=== PATIENT | male | born 1990 | race Caucasian/White ===

== ENCOUNTER 2017-08-06 21:36 | Emergency (ER) | payer OTHER | END 2017-08-06 23:36 | disposition left against medical advice (07) | LOC: M ED 21:36 | DX: Z53.21 Procedure and treatment not carried out due to patient leaving prior to being seen by health care provider (principal) ==

== ENCOUNTER 2019-09-01 15:10 | Emergency (ER) | payer OTHER, SELFPAY ==
[~2019-09-01] VITALS: Ht 185.4 cm; Wt 157.4 kg
[2019-09-01 15:39] VITALS: BP 178/104
[2019-09-01] MEDS ORDERED: CLIN75CA PO (15:54)
[2019-09-01] MEDS ORDERED: CEPH25SS PO (15:58)
[2019-09-01] MEDS ORDERED: CLIN150C14 PO (15:58)
== END 2019-09-01 19:08 | disposition left against medical advice (07) ==
LOC: M ED 15:10
DX: L03.115 Cellulitis of right lower limb (principal); Z86.14 Personal history of Methicillin resistant Staphylococcus aureus infection; K21.9 Gastro-esophageal reflux disease without esophagitis; F17.200 Nicotine dependence, unspecified, uncomplicated; F11.10 Opioid abuse, uncomplicated; E66.9 Obesity, unspecified; Z53.21 Procedure and treatment not carried out due to patient leaving prior to being seen by health care provider

== ENCOUNTER 2019-09-21 10:39 | Emergency (ER) | payer OTHER, SELFPAY ==
[~2019-09-21] VITALS: Ht 185.4 cm; Wt 136.4 kg
[~2019-09-21 10:39] MED LIST: CEPH25SS PO; CLIN150C14 PO; CLIN75CA PO
[2019-09-21] MEDS ORDERED: BACT800T5 PO ×2 (10:45→15:27)
[2019-09-21 12:50] LABS: BASO # 0.1 10^3/uL (0.0-0.2); BASO % 0.8 % (0.0-1.0); EOS # 0.1 10^3/uL (0.0-0.5); HEMATOCRIT 46.3 % (42.0-52.0); HEMOGLOBIN 14.9 g/dl (13.5-17.5); LYMPH # 2.2 10^3/uL (1.5-5.0); LYMPH % 20.5 % (24.0-44.0); MEAN CORPUSCULAR HEMOGLOBIN 29.9 pg (27.0-33.0); MEAN CORPUSCULAR HGB CONC 32.2 g/dl (32.0-36.5); MEAN CORPUSCULAR VOLUME 92.8 fl (80.0-96.0); MONO # 0.6 10^3/uL (0.0-0.8); MONO % 5.9 % (0.0-5.0); NEUTROPHILS # 7.7 10^3/uL (1.5-8.5); NEUTROPHILS % 71.5 % (36.0-66.0); PLATELET COUNT, AUTOMATED 411 10^3/uL (150-450); RED BLOOD COUNT 4.99 10^6/uL (4.30-6.10); WHITE BLOOD COUNT 10.7 10^3/uL (4.0-10.0)
[2019-09-21 13:14] LABS: ERYTHROCYTE SEDIMENTATION RATE 22 mm/hr (0-15)
--- NOTE | 2019-09-21 14:29 | REP ---
Clinical: Open wounds. Evaluate for osteomyelitis. Technique: AP and lateral views of the right tibia / fibula. Findings: Open wounds along the anteromedial aspect of the mid calf noted. No foreign body. The osseous structures demonstrate age-related changes without periosteal reaction to suggest osteomyelitis. No fracture or dislocation. Impression: Open wound. No evidence for underlying osseous involvement. Electronically Signed by Pranav Griffin MD 09/21/2019 02:21 P
[2019-09-21 14:45] VITALS: BP 155/94
[2019-09-21] MEDS ORDERED: EQL1CAP9 PO (15:36)
== END 2019-09-21 15:43 | disposition home or self-care (01) ==
LOC: M ED 10:39
DX: S81.801A Unspecified open wound, right lower leg, initial encounter (principal); L03.115 Cellulitis of right lower limb; Z86.14 Personal history of Methicillin resistant Staphylococcus aureus infection; F17.200 Nicotine dependence, unspecified, uncomplicated; F19.10 Other psychoactive substance abuse, uncomplicated; Z79.899 Other long term (current) drug therapy

== ENCOUNTER 2020-02-17 11:35 | Inpatient (IN) | payer OTHER, SELFPAY ==
[~2020-02-17] VITALS: Ht 185.4 cm; Wt 158.6 kg
[~2020-02-17 11:35] MED LIST changes: +BACT800T5 PO; +EQL1CAP9 PO
[2020-02-17 12:38] LABS: HEMOGLOBIN 13.6 g/dl (13.5-17.5); MEAN CORPUSCULAR HEMOGLOBIN 30.4 pg (27.0-33.0); MEAN CORPUSCULAR HGB CONC 33.2 g/dl (32.0-36.5); MEAN CORPUSCULAR VOLUME 91.7 fl (80.0-96.0); PLATELET COUNT, AUTOMATED 289 10^3/uL (150-450); RED BLOOD COUNT 4.47 10^6/uL (4.30-6.10); WHITE BLOOD COUNT 7.9 10^3/uL (4.0-10.0)
[2020-02-17 13:19] LABS: ACETAMINOPHEN LEVEL < 2.0 UG/ML (10.0-30.0); ALBUMIN 3.9 GM/DL (3.2-5.2); ALT/SGPT 35 U/L (12-78); AMPHETAMINES LEVEL URINE POSITIVE (NEGATIVE); BARBITURATES URINE NEGATIVE (NEGATIVE); BENZODIAZEPINES URINE NEGATIVE (NEGATIVE); BILIRUBIN,DIRECT 0.2 MG/DL (0.0-0.2); BILIRUBIN,TOTAL 0.7 MG/DL (0.2-1.0); BLOOD UREA NITROGEN 16 MG/DL (7-18); CALCIUM LEVEL 9.3 MG/DL (8.5-10.1); CANNABINOIDS URINE NEGATIVE (NEGATIVE); CARBON DIOXIDE LEVEL 31 MEQ/L (21-32); CHLORIDE LEVEL 106 MEQ/L (98-107); COCAINE METABOLITE URINE NEGATIVE (NEGATIVE); CPK CREATINE PHOSPHOKINASE 386 U/L (39-308); CREATININE FOR GFR 0.92 MG/DL (0.70-1.30); ETHYL ALCOHOL (ETHANOL) < 0.003 % (0.000-0.010); GLOMERULAR FILTRATION RATE > 60.0 (>60); GLUCOSE, FASTING 96 MG/DL (70-100); METHADONE URINE NEGATIVE (NEGATIVE); OPIATES URINE NEGATIVE (NEGATIVE); PHENCYCLIDINE URINE NEGATIVE (NEGATIVE); POTASSIUM SERUM 4.2 MEQ/L (3.5-5.1); SALICYLATE LEVEL 2.5 MG/DL (5.0-30.0); SODIUM LEVEL 141 MEQ/L (136-145); THYROID STIMULATING HORMONE 0.648 uIU/ML (0.358-3.740)
[2020-02-17] MEDS ORDERED: LORazepam 2 MG TAB PO STA (15:55)
[2020-02-17] MEDS ORDERED: OLANZapine ORAL DISINTEGRATING TAB 5MG PO PRN (17:15)
[2020-02-17] MEDS ORDERED: MAALOX 30 ML SUSP *UDC PO PRN (17:15)
[2020-02-17] MEDS ORDERED: MOM 30ML SUSPENSION UDC PO PRN (17:15)
[2020-02-17] MEDS ORDERED: LORazepam 2 MG TAB PO PRN (17:15)
[2020-02-17] MEDS ORDERED: ACETAMINOPHEN TAB 650MG DOSE (2X325MG) PO PRN (17:15)
[2020-02-17] MEDS: THIAMINE 100 MG TAB PO SCH (19:04)
[2020-02-17 21:32] VITALS: BP 143/94
[2020-02-18 05:00] VITALS: BP 130/90
[2020-02-18 06:02] VITALS: BP 130/90
[2020-02-18] MEDS: NICOTINE 21MG/24HR 1 EA TRANSDERMAL TD SCH (09:00)
[2020-02-18] MEDS: FOLIC ACID 1 MG TAB PO SCH (09:06)
[2020-02-18] MEDS: MULTIVITAMINS/MINERALS THERAP 1 TAB PO SCH (09:06)
[2020-02-18] MEDS: THIAMINE 100 MG TAB PO SCH ×2 (09:06→22:09)
--- NOTE | 2020-02-18 14:49 | HPEPDOC ---
[facility] Medical History & Physical Date of Admission Feb 17, 2020 Date of Service: Feb 18, 2020 History and Physical CHIEF COMPLAINT: Depression HISTORY OF PRESENT ILLNESS: Patient is 29 year old male with PMH PTSD, Depression/anxiety, RLE MRSA skin infection presented to [facility] at [facility] for reported suicidal ideation. He states that he has mental illness history and has been undergoing stressors that caused him to become more depressed and had suicidal thoughts. The only medical problem he reports is the chronic RLE wound. He reports being hospitalized for his leg ni [place] last July and has had I and D follow by antibiotic treatment. He had seen Dr. Hamomnd at the wound clinic once but has not followed up in a long time due to COVID. He does not report any complaints in his leg and states that the wound look the same as it had been for months with no significant change. He denies any pain, SOB, fever, chills, nausea or vomiting. PAST MEDICAL HISTORY: Refer to [facility] PAST SURGICAL HISTORY: Tonsillectomy RLE I and D SOCIAL HISTORY: Smokes 1.5 ppd. denies alcohol use. Reports prescription suboxone abuse but UA was + for amphetamine, he is not sure what drugs he was using FAMILY HISTORY: Mother- DM, HTN, anxiety ALLERGIES: Please see below. REVIEW OF SYSTEMS: 10 point review of system negative except as stated in HPI HOME MEDICATIONS: Please see below. PHYSICAL EXAMINATION: General: No acute distress, Alert Eyes: Normal sclera, EOMI HENT: Atraumatic Cardiovascular: Normal rate, normal rhythm. Pulmonary: Clear to auscultation b/l, no wheezing GI: Soft, nontender, nondistended Skin: 2 circular RLE circular wound with overlying bandage. No swelling or tenderness but pus is noted on surface. Neuro: CN grossly intact. No focal deficits. Strengths equal b/l. Psych: oriented x 3 LABORATORY DATA: See below. MICROBIOLOGY: Please see below. ASSESSMENT AND PLAN: 1. Depression/anxiety - eval and treat per psych. 2. Chronic RLE wound - Reportedly unchanged for months and has had treatment with I and D and antibiotics in [place] in July. - Follows with wound care in [place] with Dr. Hammond but has not been back in a long time. - He is afebrile, no leukocytosis with no systemic symptoms. No significant soft tissue inflammation. - Instructed to cleanse the wound area and apply clean dressing. - Recommend follow up with wound care immediately post discharge or consult surgery for evaluation if patient is still here longer than the next 2 days. - Start on antibiotics should wound worsen or develops any systemic symptoms. Will sign off at this time but please call with any questions or concerns. Vital Signs Vital Signs Date Time Temp Pulse Resp B/P (MAP) Pulse Ox O2 Delivery O2 Flow Rate FiO2 02/18/20 06:02 98.1 98 18 130/90 (103) 99 Room Air Home Medications Unable to Obtain Active Prescriptions or Reported Meds Allergies Coded Allergies: No Known Allergies (Unverified , 08/06/17) A-FIB/CHADSVASC A-FIB History Current/History of A-Fib/PAF?: No JA ARAGON MD Feb 18, 2020 14:49
[2020-02-18 15:39] VITALS: BP 153/80
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
[2020-02-18 22:00] VITALS: BP 172/85
[2020-02-18] MEDS: traZODone 50 MG TAB PO PRN (22:09)
[2020-02-18] MEDS: PRAZOSIN 1 MG CAP PO SCH (22:09)
[2020-02-19 06:23] VITALS: BP 129/80
[2020-02-19] MEDS: MULTIVITAMINS/MINERALS THERAP 1 TAB PO SCH (08:41)
[2020-02-19] MEDS: THIAMINE 100 MG TAB PO SCH ×2 (08:41→21:06)
[2020-02-19] MEDS: SERTRALINE HCL 50 MG TAB PO SCH (08:41)
[2020-02-19] MEDS: FOLIC ACID 1 MG TAB PO SCH (08:41)
[2020-02-19] MEDS: NICOTINE 21MG/24HR 1 EA TRANSDERMAL TD SCH (08:42)
[2020-02-19] MEDS ORDERED: BACTRIM 160MG/800MG DS TAB PO SCH (09:00)
--- NOTE | 2020-02-19 12:37 | IPNPDOC ---
Date Seen The patient was seen on 02/19/20. Progress Note SUBJECTIVE: Called by nursing this morning regarding patient's hand swelling b/l. However, by the time I arrived, patient reported that his hands are back to normal. States that it swells up from time to time and self resolves. His RLE wound is re-assessed, still with superficial pus on surface. No changes from day prior. OBJECTIVE PHYSICAL EXAMINATION: VITAL SIGNS: Please see below. General: No acute distress, Alert Eyes: Normal sclera, EOMI HENT: Atraumatic Cardiovascular: Normal rate, normal rhythm. Pulmonary: Clear to auscultation b/l, no wheezing GI: Soft, nontender, nondistended Skin: 2 circular RLE circular wound with overlying bandage. No swelling or tenderness but pus is noted on surface. Neuro: CN grossly intact. No focal deficits. Strengths equal b/l. Psych: oriented x 3 LABORATORY DATA, IMAGING STUDIES, MICROBIOLOGY: Please see below. ASSESSMENT AND PLAN: 1. Depression/anxiety - eval and treat per psych. 2. Chronic RLE wound - Reportedly unchanged for months and has had treatment with I and D and antibiotics in [place] in July. - Follows with wound care in [place] with Dr. Hammond but has not been back in a long time. - He is afebrile, no leukocytosis with no systemic symptoms. No significant soft tissue inflammation. - Discussed with general surgery, Dr. Hdez. Recommended wet to dry dressing BID and follow up with wound care vs. surgery post discharge. - Since patient is already established with wound care, would recommend patient try to be seen there. If not able, then contact surgery office. - Had been treated with antibiotics already and wound had not changed for months. Will hold of on further antibiotic treatment at this time. Will sign off. please call with any questions or concerns. VS, I&O, 24H, Fishbone Vital Signs/I&O Vital Signs Date Time Temp Pulse Resp B/P (MAP) Pulse Ox O2 Delivery O2 Flow Rate FiO2 02/19/20 06:23 98.0 72 18 129/80 (96) 98 Room Air JA ARAGON MD Feb 19, 2020 12:37
[2020-02-19 16:19] VITALS: BP 125/84
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
[2020-02-19] MEDS: PRAZOSIN 1 MG CAP PO SCH (21:06)
[2020-02-20 05:58] VITALS: BP 132/88
--- NOTE | 2020-02-20 07:51 | MHIPNPDOC ---
[facility] Progress Note Progress Note The patient was seen on 02/20/20. HPI: Albino presents today for a follow-up visit. He states he feels better than when he came in and that he feels sleepier than usual. Albino states the Zoloft has been helping. Albino denies being suicidal or homicidal and reports he wants to go home to see his children. He mentions his has been in a similar facility in the past Objective Appearance: Well nourished. Well groomed. Appears to be stated age. Behavior: Pleasant. Cooperative with good eye contact. Engaged. Affect: Full range. Appropriate to context. Mood: Generally good. Euthymic. Appropriately reactive. Speech: Normal volume. Normal rate. Spontaneous and Fluid. Motor: No gross motor abnormalities. Cognition: Alert, Attentive, and Oriented to person, place, time. Memory: No formal testing. No gross abnormalities of short or detention memory noted during interview. Thought Form: Linear and goal directed. Thought Content: No evidence of suicidal ideation. No thoughts of self harm. No evidence of aggressive or homicidal ideation. No evidence of delusions. Perception: No perceptual abnormalities noted. Judgement: Intact as evidenced by decision making in the recent past. Insight: Good insight into symptoms and treatment options. Assessment F43.24 Adjustment disorder with disturbance of conduct Plan Discharge tomorrow. Continue medications as is. Vital Signs Vital Signs Date Time Temp Pulse Resp B/P (MAP) Pulse Ox O2 Delivery O2 Flow Rate FiO2 02/20/20 05:58 98.0 68 18 132/88 (103) 98 Room Air Current Medications Current Medications Medications (Trade) Dose Ordered Sig/Bety Route PRN Reason Start Time Stop Time Status Last Admin Dose Admin Acetaminophen (Tylenol Tab) 650 mg Q6HP PRN PO HEADACHE or DISCOMFORT 02/17/20 17:15 Al Hydrox/Mg Hydrox/Simethicone (Mylanta) 30 ml Q4HP PRN PO HEARTBURN/INDIGESTION 02/17/20 17:15 Folic Acid (Folic Acid) 1 mg DAILY PO 02/18/20 09:00 02/19/20 08:41 Home Med (Med Rec Complete!) ASDIRECTED XX 02/17/20 15:45 02/17/20 15:42 DC Lorazepam (Ativan) 2 mg ASDIRECTED PRN PO SEE PROTOCOL 02/17/20 17:15 02/19/20 07:26 DC Lorazepam (Ativan) 2 mg STAT STAT PO 02/17/20 15:55 02/17/20 15:56 DC 02/17/20 16:01 Magnesium Hydroxide (Milk Of Magnesia) 30 ml DAILYPRN PRN PO CONSTIPATION 02/17/20 17:15 Multivitamins (Theragram-M) 1 tab DAILY PO 02/18/20 09:00 02/19/20 08:41 Nicotine (Nicoderm Cq 21mg) 1 patch DAILY TD 02/18/20 09:00 02/19/20 08:42 Olanzapine (ZyPREXA ZYDIS) 5 mg Q4HP PRN PO ANXIETY/AGITATION 02/17/20 17:15 02/19/20 08:41 Prazosin HCl (Minipress) 1 mg QHS PO 02/18/20 21:00 02/19/20 21:06 Sertraline HCl (Zoloft) 50 mg DAILY PO 02/19/20 09:00 02/19/20 08:41 Thiamine HCl (Thiamine HCl) 100 mg BID PO 02/17/20 18:00 02/20/20 09:01 02/19/20 21:06 Trazodone HCl (Desyrel) 50 mg QHSP PRN PO INSOMNIA 02/17/20 17:15 02/18/20 22:09 Trimethoprim/ Sulfamethoxazole (Bactrim Ds, Septra Ds 160mg/ 800mg) 1 tab BID PO 02/19/20 09:00 02/19/20 18:59 DC 02/19/20 08:41 Allergies Coded Allergies: No Known Allergies (Unverified , 08/06/17) GHULAM WOODS DO Feb 20, 2020 07:51
[2020-02-20] MEDS: SERTRALINE HCL 50 MG TAB PO SCH (08:12)
[2020-02-20] MEDS: FOLIC ACID 1 MG TAB PO SCH (08:12)
[2020-02-20] MEDS: MULTIVITAMINS/MINERALS THERAP 1 TAB PO SCH (08:12)
[2020-02-20] MEDS: THIAMINE 100 MG TAB PO SCH (08:12)
[2020-02-20] MEDS: NICOTINE 21MG/24HR 1 EA TRANSDERMAL TD SCH (08:12)
[2020-02-20 16:09] VITALS: BP 148/90
[2020-02-20] MEDS: traZODone 50 MG TAB PO PRN (21:33)
[2020-02-20 21:34] VITALS: BP 148/90
[2020-02-20] MEDS: PRAZOSIN 1 MG CAP PO SCH (21:34)
[2020-02-21 06:25] VITALS: BP 140/90
--- NOTE | 2020-02-21 07:42 | MHDSPDOC ---
[facility] Discharge Summary Discharge Summary DATE OF ADMISSION: Feb 17, 2020 at 17:04 DATE OF DISCHARGE: Feb 21, 2020 at 10:19 DISCHARGE DIAGNOSES: F43.24 Adjustment disorder with disturbance of conduct CONSULTANTS INVOLVED:[ None (basic hospitalist screening)] REASON FOR ADMISSION & TREATMENT AND PROGRESS ON THE UNIT : Patient was admitted for reported concerning statements and ideations in the conext of depression and stressors in his realtionship. He was observed after being admitted. He attended treatment without any major problems, he was well behaved and engaged. MEDICATIONS: Albino was started on Zoloft with positive effects. Increased to full effect, where he depression symptoms were not observable and patient denied any non- situational symptoms. DISCHARGE ASSESSMENT[improved] Legal status considerations: The patient at the time of discharge did not meet criteria for involuntary admission/extension due to having a [normal] mental status exam, [fair] insight into the situation, They are engaged in the discharge process, as well as being friendly and amenable in behavioral control and havent been engaging in any observed concerning behavior or ideation recently. They decline voluntary extension/admission at this time and must be discharged in good carlos enrique, as Im unable to make a case for holding the patient against their will. They may have historical risk factors of admissions and other interactions with psychiatry however, those are not modifiable from a clinical perspective. The patient will need to be discharged in good carlos enrique. MENTAL STATUS EXAMINATION ON DISCHARGE: [General: Well dressed with good hygiene Speech: Spontaneous and fluid Thought processes: Linear and logical Thought content: Future orientated Abstract reasoning, and computation: Intact Description of associations: Intact Description of abnormal or psychotic thoughts:Denies any suicidal or homicidal ideation. Denies any auditory or visual hallucinations. Does not appear to be responding to internal stimuli. Does not appear to be endorsing any bizarre or paranoid ideation. Judgment: fair Insight: fair Orientation: Alert and orientated 3 Recent and remote memory: Intact Attention span and concentration: Intact Fund of knowledge: Adequate Mood: "okay" Affect: Euthymic with a full range] PLAN/FOLLOWUP ARRANGEMENTS: Follow up appointments made (PCP and MH in 5 days of D/C date) and safety plan completed. Safety Planning aspects completed prior to discharge [Medication supplies limited to 7 days with 4 refills to prevent accumulation to OD] [RN reviewed crisis hotline information and other aspects to empower patient to access care in interim before next appointment.] The amount of time spent in the coordination of care for this patient was approximately 30 minutes. Vital Signs/I&Os Vital Signs Date Time Temp Pulse Resp B/P (MAP) Pulse Ox O2 Delivery O2 Flow Rate FiO2 02/21/20 06:25 98.9 91 14 140/90 (107) Room Air 02/20/20 05:58 98 Medications Scheduled Nicotine (Nicotine Patch) 21 Mg Patch.td24, 1 PATCH TD DAILY for tobacco for 30 Days, #30 Prazosin HCl (Minipress) 1 Mg Capsule, 1 MG PO QHS for nightmares for 7 Days, #7 Sertraline HCl (Sertraline HCl) 50 Mg Tablet, 50 MG PO DAILY for mood for 7 Days, #7 Allergies Coded Allergies: No Known Allergies (Unverified , 08/06/17) GHULAM WOODS DO Feb 21, 2020 07:42
[2020-02-21] MEDS ORDERED: MINI1CAP PO (07:44)
[2020-02-21] MEDS ORDERED: SERT50TA29 PO (07:44)
[2020-02-21] MEDS ORDERED: NICO21PAT TD (07:44)
[2020-02-21] MEDS: FOLIC ACID 1 MG TAB PO SCH (08:56)
[2020-02-21] MEDS: SERTRALINE HCL 50 MG TAB PO SCH (08:56)
[2020-02-21] MEDS: NICOTINE 21MG/24HR 1 EA TRANSDERMAL TD SCH (08:56)
[2020-02-21] MEDS: MULTIVITAMINS/MINERALS THERAP 1 TAB PO SCH (08:56)
== END 2020-02-21 10:19 | disposition home or self-care (01) | DRG 755 ==
LOC: M ED 11:35 → M ED INP 17:04 → M PSY 17:52
PROVIDERS: ADMIT Psychiatry & Neurology Addiction Medicine; ATTEND Psychiatry & Neurology Addiction Medicine
DX: F43.24 Adjustment disorder with disturbance of conduct (principal); F17.200 Nicotine dependence, unspecified, uncomplicated

== ENCOUNTER 2022-03-03 22:57 | Emergency (ER) | payer MEDICAID, OTHER ==
[~2022-03-03] VITALS: Ht 185.4 cm; Wt 187.3 kg
[~2022-03-03 22:57] MED LIST changes: -CLIN150C14 PO; +CLIN150C17 PO; +MINI1CAP PO; +NICO21PAT TD; +SERT50TA29 PO
[2022-03-03] MEDS ORDERED: NS 1,000 ML IV ONE (23:25)
[2022-03-04] MEDS ORDERED: BENZONATATE 100MG CAPSULE PO ONE (00:20)
[2022-03-04 00:21] LABS: VENOUS BASE EXCESS -1.4 (-2.0-2.0); VENOUS HCO3 25.9 MEQ/L (23.0-27.0); VENOUS O2 SATURATION 82.8 % (60.0-80.0); VENOUS PARTIAL PRESSURE O2 47.4 mmHg (30.0-50.0); VENOUS PH 7.298 UNITS (7.330-7.430); VENOUS TOTAL CO2 27.5 MEQ/L (24.0-28.0)
[2022-03-04] MEDS: COMBIVENT RESPIMAT 100-20MCG INHALER 4GM INH SCH ×2 (00:29→00:31)
[2022-03-04 00:34] LABS: BASO # 0.1 10^3/uL (0.0-0.2); BASO % 0.3 % (0.0-1.0); EOS # 0.1 10^3/uL (0.0-0.5); EOS % 0.7 % (0.0-3.0); HEMATOCRIT 40.4 % (42.0-52.0); HEMOGLOBIN 13.2 g/dl (13.5-17.5); LYMPH # 1.7 10^3/uL (1.5-5.0); LYMPH % 9.4 % (24.0-44.0); MEAN CORPUSCULAR HEMOGLOBIN 30.1 pg (27.0-33.0); MEAN CORPUSCULAR HGB CONC 32.7 g/dl (32.0-36.5); MONO # 1.2 10^3/uL (0.0-0.8); MONO % 6.5 % (2.0-8.0); NEUTROPHILS # 14.7 10^3/uL (1.5-8.5); NEUTROPHILS % 82.2 % (36.0-66.0); PLATELET COUNT, AUTOMATED 432 10^3/uL (150-450); RED BLOOD COUNT 4.39 10^6/uL (4.30-6.10); WHITE BLOOD COUNT 17.9 10^3/uL (4.0-10.0)
[2022-03-04 00:51] LABS: ACETAMINOPHEN LEVEL < 2.0 UG/ML (10.0-30.0); ALBUMIN 3.3 GM/DL (3.2-5.2); ALT/SGPT 44 U/L (12-78); BILIRUBIN,DIRECT < 0.1 MG/DL (0.0-0.2); BILIRUBIN,TOTAL 0.1 MG/DL (0.2-1.0); BLOOD UREA NITROGEN 14 MG/DL (7-18); CALCIUM LEVEL 8.9 MG/DL (8.5-10.1); CARBON DIOXIDE LEVEL 27 MEQ/L (21-32); CHLORIDE LEVEL 102 MEQ/L (98-107); ETHYL ALCOHOL (ETHANOL) < 0.003 % (0.000-0.010); GLOMERULAR FILTRATION RATE > 60.0 (>60); GLUCOSE, FASTING 126 MG/DL (70-100); POTASSIUM SERUM 4.3 MEQ/L (3.5-5.1); SALICYLATE LEVEL 3.2 MG/DL (5.0-30.0); SODIUM LEVEL 135 MEQ/L (136-145); THYROID STIMULATING HORMONE 0.691 uIU/ML (0.358-3.740); TOTAL PROTEIN 8.2 GM/DL (6.4-8.2)
[2022-03-04 04:45] LABS: AMPHETAMINES LEVEL URINE NEGATIVE (NEGATIVE); BARBITURATES URINE NEGATIVE (NEGATIVE); BENZODIAZEPINES URINE NEGATIVE (NEGATIVE); CANNABINOIDS URINE NEGATIVE (NEGATIVE); COCAINE METABOLITE URINE POSITIVE (NEGATIVE); METHADONE URINE NEGATIVE (NEGATIVE); OPIATES URINE POSITIVE (NEGATIVE); PHENCYCLIDINE URINE NEGATIVE (NEGATIVE)
[2022-03-04 05:08] VITALS: BP 172/86
== END 2022-03-04 05:30 | disposition left against medical advice (07) ==
LOC: M ED 22:57 → EDBD 22:57 → M ED 03-04 05:30
DX: T40.1X1A Poisoning by heroin, accidental (unintentional), initial encounter (principal); J96.01 Acute respiratory failure with hypoxia; F17.200 Nicotine dependence, unspecified, uncomplicated; Z53.9 Procedure and treatment not carried out, unspecified reason

== ENCOUNTER 2022-04-25 14:37 | Emergency (ER) | payer OTHER ==
[~2022-04-25] VITALS: Ht 185.4 cm; Wt 191.1 kg
[2022-04-25 14:54] VITALS: BP 178/98
== END 2022-04-25 17:51 | disposition left against medical advice (07) ==
LOC: M ED 14:37
DX: Z53.21 Procedure and treatment not carried out due to patient leaving prior to being seen by health care provider (principal)

== ENCOUNTER 2022-05-20 14:18 | Emergency (ER) | payer OTHER ==
[2022-05-20] MEDS ORDERED: LIDOCAINE 1% MDV 20ML VIAL As Ordered ONE (15:39)
[2022-05-20 17:06] LABS: BASO # 0.1 10^3/uL (0.0-0.2); BASO % 0.3 % (0.0-1.0); EOS % 0.1 % (0.0-3.0); LYMPH # 1.5 10^3/uL (1.5-5.0); LYMPH % 9.5 % (24.0-44.0); MEAN CORPUSCULAR HEMOGLOBIN 29.6 pg (27.0-33.0); MEAN CORPUSCULAR HGB CONC 32.5 g/dl (32.0-36.5); MEAN CORPUSCULAR VOLUME 91.1 fl (80.0-96.0); MONO # 1.1 10^3/uL (0.0-0.8); MONO % 7.4 % (2.0-8.0); NEUTROPHILS # 12.7 10^3/uL (1.5-8.5); NEUTROPHILS % 82.4 % (36.0-66.0); PLATELET COUNT, AUTOMATED 341 10^3/uL (150-450); RED BLOOD COUNT 4.39 10^6/uL (4.30-6.10); WHITE BLOOD COUNT 15.4 10^3/uL (4.0-10.0)
[2022-05-20 17:33] LABS: RSV AMPLIFICATION NEGATIVE (NEGATIVE)
[2022-05-20 17:47] LABS: ERYTHROCYTE SEDIMENTATION RATE 33 mm/hr (0-15)
[2022-05-20 17:59] LABS: ACETAMINOPHEN LEVEL < 2.0 UG/ML (10.0-30.0); ALBUMIN 3.6 GM/DL (3.2-5.2); ALT/SGPT 61 U/L (12-78); BILIRUBIN,DIRECT 0.2 MG/DL (0.0-0.2); BILIRUBIN,TOTAL 0.5 MG/DL (0.2-1.0); BLOOD UREA NITROGEN 15 MG/DL (7-18); C REACTIVE PROTEIN QUANTITATIV 4.03 MG/DL (0.00-0.30); CALCIUM LEVEL 8.7 MG/DL (8.5-10.1); CARBON DIOXIDE LEVEL 24 MEQ/L (21-32); CHLORIDE LEVEL 100 MEQ/L (98-107); CREATININE FOR GFR 2.34 MG/DL (0.70-1.30); ETHYL ALCOHOL (ETHANOL) < 0.003 % (0.000-0.010); GLOMERULAR FILTRATION RATE 34.6 (>60); GLUCOSE, FASTING 98 MG/DL (70-100); POTASSIUM SERUM 4.1 MEQ/L (3.5-5.1); SALICYLATE LEVEL 3.1 MG/DL (5.0-30.0); SODIUM LEVEL 132 MEQ/L (136-145); TOTAL PROTEIN 7.9 GM/DL (6.4-8.2)
[2022-05-20 18:18] VITALS: BP 142/78
[2022-05-20] MEDS ORDERED: HOME MED LIST COMPLETE! XX SCH (19:30)
[2022-05-20] MEDS ORDERED: NIRMATRELVIR/RITONAVIR (RENAL) CO-PACK (EUA) PO SCH ×2 (19:45→21:00)
== END 2022-05-20 20:20 | disposition left against medical advice (07) ==
LOC: M ED 14:18 → EDBD 14:18 → M ED 20:20
DX: T40.1X1A Poisoning by heroin, accidental (unintentional), initial encounter (principal); M86.8X6 Other osteomyelitis, lower leg; U07.1 COVID-19; Z53.9 Procedure and treatment not carried out, unspecified reason; Z86.14 Personal history of Methicillin resistant Staphylococcus aureus infection; F17.200 Nicotine dependence, unspecified, uncomplicated; L97.519 Non-pressure chronic ulcer of other part of right foot with unspecified severity
CPT/HCPCS: 36410; 71045; 73590; 73630; 76937; 80048; 80076; 80143; 82077; 82550; 84443; 85025; 85652; 86140; 87040; 87631; 93005; 93041; 94760; 99285; C1751; J1642; J1644